=== PATIENT | male | born 1975 | race Caucasian/White ===

== ENCOUNTER 2017-02-21 08:46 | Day surgery (SDC) | payer BC ==
[2017-02-21] MEDS ORDERED: Lidocaine 1%/Sod Bicarbonate in NS 8.4% 1 ML Syringe PRN (09:23)
[2017-02-21] MEDS ORDERED: Sodium Chloride 0.9% 10 ML Syringe FLUSH PRN (09:23)
[2017-02-21] MEDS ORDERED: Lactated Ringers 1,000 ML IV SCH (09:30)
--- NOTE | 2017-02-21 09:34 | PCM.PREANE ---
Preanesthetic Assessment - Anesthesia/Transfusion/Family Hx Anesthesia History: Prior Anesthesia Without Reaction Family History of Anesthesia Reaction: No Transfusion History: No Prior Transfusion(s) Intubation History: Unknown - Review of Systems General: No Symptoms Pulmonary: No Symptoms Cardiovascular: No Symptoms Gastrointestinal: Diarrhea, Difficulty Swallowing, Vomiting (with dysphagia on occasion) Neurological: No Symptoms, Numbness (left hand paresthesia/ left leg feels like a pulled muscle since December 14/2016 back fusion L3L4.) Other: Reports: Sinus Problem (seasonal allergies/history of sinus infections/ recent abcess removed from right frontal sinus), Throat Pain (dysphagia) - Physical Assessment NPO Status Date: 02/20/17 NPO Status Time: 22:00 Pulse: 56 O2 Sat by Pulse Oximetry: 98 Respiratory Rate: 16 Blood Pressure: 128/87 Temperature: 36.3 C Vital Signs: Last Vital Signs Temp 36.3 C 02/21/17 09:00 Pulse 56 L 02/21/17 09:00 Resp 16 02/21/17 09:00 BP 128/87 02/21/17 09:00 Pulse Ox 98 02/21/17 09:00 Height: 1.91 m Weight: 115.212 kg ASA Class: 2 Mental Status: Alert & Oriented x3 Dentition: Reports: Normal Dentition (recent dental implants noted), Caries Thyro-Mental Finger Breadths: 3 Mouth Opening Finger Breadths: 3 ROM/Head Extension: Full Lungs: Clear to Auscultation, Normal Respiratory Effort Cardiovascular: Regular Rate, Regular Rhythm, No Murmurs - Allergies Allergies/Adverse Reactions: Allergies Allergy/AdvReac Type Severity Reaction Status Date / Time No Known Allergies Allergy Verified 02/13/14 09:12 - Anesthesia Plan Pre-Op Medication Ordered: None - Acknowledgements Anesthesia Type Planned: MAC Pt an Appropriate Candidate for the Planned Anesthesia: Yes Alternatives and Risks of Anesthesia Discussed w Pt/Guardian: Yes Pt/Guardian Understands and Agrees with Anesthesia Plan: Yes PreAnesthesia Questionnaire Cardiovascular History: Reports: Hypertension - Past Surgical History HEENT Surgical History: Reports: Tonsillectomy, Other (See Below) Other HEENT Surgeries/Procedures: cyst removal from upper gum Male Surgical History: Reports: Vasectomy Neurological Surgical History: Reports: Spinal Fusion - SUBSTANCE USE Smoking Status *Q: Never Smoker Second Hand Smoke Exposure: No Recreational Drug Use History: No - HOME MEDS Home Medications: Home Meds traMADol [Ultram] 1 - 2 tab PO Q6H PRN #5 tab 02/13/14 [Rx] Acetaminophen with Codeine [Tylenol with Codeine #3 Tablet] 1 tab PO ASDIRECTED PRN 02/21/17 [History] Clindamycin HCl 300 mg PO QID 02/21/17 [History] Multivitamin [Multivitamins] 1 cap PO DAILY 02/21/17 [History] Omeprazole 20 mg PO BID 02/21/17 [History] Valsartan/Hydrochlorothiazide [Valsartan-Hctz 160-12.5 mg Tab] 1 tab PO DAILY [History] amLODIPine [Norvasc] 5 mg PO DAILY 02/21/17 [History] - CURRENT (IN HOUSE) MEDS Current Meds: Current Medications Lactated Ringer's (Ringers, Lactated) 1,000 mls @ 125 mls/hr IV ASDIRECTED ISMA Stop: 02/21/17 23:00 Lidocaine/Sodium Bicarbonate (Buffered Lidocaine 1% In Ns 8.4%) 0.25 ml .XX ONETIME PRN PRN Reason: Prior to IV Start Stop: 02/21/17 18:00 Sodium Chloride (Saline Flush) 10 ml FLUSH ASDIRECTED PRN PRN Reason: Keep Vein Open Stop: 02/21/17 18:00
[2017-02-21] MEDS ORDERED: Propofol 200 MG/20 ML SDV ONE (10:15)
[2017-02-21] MEDS ORDERED: Midazolam 1 MG/ML 2 ML SDV ONE (10:15)
[2017-02-21] MEDS ORDERED: fentaNYL 100 MCG/2 ML SDV ONE (10:15)
[2017-02-21 10:48] VITALS: BP 125/73
--- NOTE | 2017-02-21 10:48 | PCM48HPAN ---
Post Anesthesia Note - EVALUATION WITHIN 48HRS OF ANESTHETIC Vital Signs in Normal Range: Yes Patient Participated in Evaluation: Yes Respiratory Function Stable: Yes Airway Patent: Yes Cardiovascular Function Stable: Yes Hydration Status Stable: Yes Pain Control Satisfactory: Yes Nausea and Vomiting Control Satisfactory: Yes Mental Status Recovered: Yes
--- NOTE | 2017-02-21 10:56 | PCM.OPNOTE ---
- General Post-Op/Procedure Note Date of Surgery/Procedure: 02/21/17 Operative Procedure(s): Esophagogastroduodenoscopy with random antrum, body of the stomach, and GE junction biopsies. Directed biopsies were taken at 35/30/25/ 20 cm from the incisors within the body of the esophagus. Findings: Diffuse esophagitis with membranes and linear erythematous changes endoscopically consistent with eosinophilic esophagitis or perhaps a candidal esophagitis. Herpetic esophagitis is also a possibility. The mucosa was easily friable. There were no ulcers seen. There was no hiatal hernia. There were no strictures. There were no diverticula or webs. There were no mass lesions. The stomach and duodenum were unremarkable. Pre Op Diagnosis: Odynophagia with dysphagia Post-Op Diagnosis: Esophagitis of unspecified etiology Anesthesia Technique: MAC, Moderate Sedation Primary Surgeon: Saúl Renteria Pathology: Biopsies of the antrum body of the stomach and GE junction. Targeted biopsy of the esophagus at 35/30/25/20 cm from the incisors. EBL in mLs: 0 Complications: None Condition: Good Free Text/Narrative:: After adequate IV sedation and analgesia was obtained with monitoring the patient was positioned on his left side. Through a bite block a lubricated upper endoscope was inserted into the esophagus where the chronic changes were visualized. I advanced the scope easily through the GE junction into the body of the stomach. Additional air was given here. The antrum was identified next followed by passage of the scope through the pylorus into the distal second part duodenum. The second and first parts of the duodenum were endoscopically normal with no mass lesions or inflammatory changes seen. The antrum and body of the stomach were also unremarkable as well. In the retroflexed view there was no hiatal hernia sliding or paraesophageal. The fundus and cardiac regions were unremarkable. The scope was withdrawn to the GE junction which was sharp. There was no strictures or webs or diverticuli seen. The body of the esophagus had linear erythematous erosions as well as easy friability throughout its length. These findings were consistent with an esophagitis of unknown etiology. Because of the diffuse involvement of the esophagus I took biopsies at multiple levels specifically at 35, 30, 25, and 20 cm from the incisors. On extubation the vocal cords were briefly visualized and were unremarkable. There were no findings consistent with Zenker's diverticulum. Electric Fan Assembler photographs were taken for the patient and for the medical record. Air was removed as I finished the procedure which she tolerated well.
== END 2017-02-21 11:22 | disposition home or self-care (01) ==
LOC: JD.SDS 08:46
PROVIDERS: ATTEND Surgery
DX: K29.50 Unspecified chronic gastritis without bleeding (principal); K22.10 Ulcer of esophagus without bleeding; I10 Essential (primary) hypertension; Z79.899 Other long term (current) drug therapy; Z98.1 Arthrodesis status; Z98.52 Vasectomy status; Z90.89 Acquired absence of other organs; Z98.890 Other specified postprocedural states
CPT/HCPCS: 43239; J2250; J3010; J7120; 00740; J2704

== ENCOUNTER 2021-05-02 10:16 | Day surgery (SDC) | payer BC ==
[~2021-05-02 10:16] MED LIST: Lactated Ringers 1,000 ML IV SCH; Lidocaine 1%/Sod Bicarbonate in NS 8.4% 1 ML Syringe IDERM PRN; Sodium Chloride 0.9% 10 ML Syringe FLUSH PRN
[2021-05-02] MEDS ORDERED: Bupivacaine 0.25% 10 ML SDV ONE (11:12)
[2021-05-02] MEDS ORDERED: Lidocaine 1% 30 ML SDV ONE (11:12)
[2021-05-02 13:10] VITALS: BP 128/91; PULSE 67
--- NOTE | 2021-05-16 06:46 | PCM.OPNOTE ---
- General Post-Op/Procedure Note Date of Surgery/Procedure: 05/02/21 Operative Procedure(s): left middle finger trigger finger release Pre Op Diagnosis: left middle finger stenosing tenosynovitis Post-Op Diagnosis: Same Anesthesia Technique: Local Primary Surgeon: Adam Ramesh Abrasive Grader Helper: Mila Gallego in mLs: 5 Complications: None Condition: Good
--- NOTE | 2021-05-16 07:21 | OR ---
DATE OF OPERATION: 05/02/2021 SURGEON: Adam Ramesh MD OPERATION PERFORMED: Left middle finger trigger finger release. PREOPERATIVE DIAGNOSIS: Left middle finger stenosing tenosynovitis. POSTOPERATIVE DIAGNOSIS: Left middle finger stenosing tenosynovitis. ANESTHESIA: Local only. SPRING LAYER: Mila Gallego PA-C ESTIMATED BLOOD LOSS: Less than 5 mL. COMPLICATIONS: None. CONDITION: Stable. DESCRIPTION OF PROCEDURE: The patient was identified in the preoperative holding area. Proper site was marked and identified by the surgeon. The patient was taken back to the operating theater where left upper extremity was then sterilely prepped and draped in the usual sterile fashion. OR time-out was performed. The patient did not receive antibiotics as it was not indicated for soft tissue hand procedure. At this time, the left upper extremity was exsanguinated with an Esmarch, and Esmarch was used as a tourniquet on the forearm. 0.25% Marcaine and 1% lidocaine were then used to anesthetize the transverse incisional site over the A1 doretha. Incision was made. Blunt dissection was taken down to the A1 doretha. Ragnell retractors used to protect the neurovascular bundles. [place] blade and a tenotomy were then used to release the A1 doretha both proximally and distally. The patient was able to make full fist. There was no triggering, and the tendons showed no signs of adhesions. At this time, adequate saline was irrigated through the wound. 4-0 nylon suture was used for closure of the skin. The patient had a sterile soft dressing applied and sent to PACU in stable condition. MMODAL /[id number]
== END 2021-05-02 12:37 | disposition home or self-care (01) ==
LOC: JD.SDS 10:16
PROVIDERS: ATTEND Orthopaedic Surgery
DX: M65.842 Other synovitis and tenosynovitis, left hand (principal); I10 Essential (primary) hypertension; E78.00 Pure hypercholesterolemia, unspecified; Z79.899 Other long term (current) drug therapy; Z91.048 Other nonmedicinal substance allergy status; Z98.890 Other specified postprocedural states; Z01.812 Encounter for preprocedural laboratory examination; Z20.822 Contact with and (suspected) exposure to COVID-19
CPT/HCPCS: J3490; J7120; U0002